=== PATIENT | male | born 1995 | race Caucasian/White ===

== ENCOUNTER → 2022-04-12 08:05 | Outpatient (CLI) | payer OTHER, SELFPAY ==
--- NOTE | 2022-04-12 08:06 | DI.US.S_ITS ---
7PROCEDURE: US SCROTUM INDICATIONS: LEFT VARICOCELE TECHNIQUE: Real-time scanning was performed of the scrotum and testicles, with image documentation. Color and pulse Doppler interrogation was performed of both testicles. COMPARISON: None. FINDINGS: Right: Testicle is normal in size at 4.2 x 2.3 x 3.4 cm, and homogenous in echotexture. Epididymis is normal in overall size and morphology. No hydrocele or varicoceles. Overlying scrotal skin is normal in thickness. Left: Testicle is normal in size at 4 x 2.1 x 2.7 cm, and homogeneous in echotexture. Epididymis is normal in overall size and morphology. No hydrocele. There is a moderate to prominent left-sided varicocele. Overlying scrotal skin is normal in thickness. Doppler: Color and pulse Doppler demonstrate normal and symmetric arterial flow in both testicles. IMPRESSION: A moderate to prominent left-sided scrotal varicocele is seen, which is consistent with the given history. Normal appearing testicles, without masses or abnormal vascularity. Dictated by: Long Cerda M.D. on 04/12/2022 at 8:52 Approved by: Long Cerda M.D. on 04/12/2022 at 8:53
== END ==
PROVIDERS: Referring Provider Urology; Visit Provider Urology
DX: I86.1 Scrotal varices (principal); R10.31 Right lower quadrant pain
CPT/HCPCS: 76870; 99213

== ENCOUNTER → 2022-08-14 08:10 | Outpatient (CLI) | payer OTHER, SELFPAY ==
--- NOTE | 2022-08-14 08:12 | DI.US.S_ITS ---
PROCEDURE: US SCROTUM INDICATIONS: FOLLOW-UP LEFT VARICOCELE TECHNIQUE: Real-time scanning was performed of the scrotum and testicles, with image documentation. Color and pulse Doppler interrogation was performed of both testicles. COMPARISON: [facility], , US SCROTUM, 04/12/2022, 8:28. FINDINGS: Right: Testicle is normal in size at 4.1 x 2.2 x 3.4 cm, and homogenous in echotexture. Epididymis is normal in overall size and morphology. No hydrocele or varicoceles. Overlying scrotal skin is normal in thickness. Left: Testicle is normal in size at 4.1 x 2.0 x 3.1 cm, and homogeneous in echotexture. Epididymis is normal in overall size and morphology. Stable moderate left-sided varicocele. No significant hydrocele. Overlying scrotal skin is normal in thickness. Doppler: Color and pulse Doppler demonstrate normal and symmetric arterial flow in both testicles. IMPRESSION: Stable moderate left varicocele. Approved by: aJmison Hamilton M.D. on 08/14/2022 at 10:04
== END ==
PROVIDERS: Referring Provider Urology; Visit Provider Urology
DX: I86.1 Scrotal varices (principal); R10.31 Right lower quadrant pain
CPT/HCPCS: 76870

== ENCOUNTER → 2024-05-16 08:37 | Outpatient (CLI) | payer OTHER, SELFPAY ==
--- NOTE | 2024-05-16 | DI.US.S_ITS ---
PROCEDURE: US SCROTUM INDICATIONS: SCROTAL VARICES TECHNIQUE: Real-time scanning was performed of the scrotum and testicles, with image documentation. Color and pulse Doppler interrogation was performed of both testicles. COMPARISON: [facility], , US SCROTUM, 08/14/2022, 8:27. FINDINGS: Right: Testicle is normal in size at 4.3 x 3.3 x 2.2 cm, and homogenous in echotexture. A few microcalcifications are present. Epididymis is normal in overall size and morphology. Epididymal head cyst measuring 6 mm. No hydrocele or varicoceles. Overlying scrotal skin is normal in thickness. Left: Testicle is normal in size at 4.4 x 2.9 x 2.1 cm, and homogeneous in echotexture. Epididymis is normal in overall size and morphology. Varicoceles present. Overlying scrotal skin is normal in thickness. Doppler: Color and pulse Doppler demonstrate normal and symmetric arterial flow in both testicles. IMPRESSION: Left-sided testicular varicoceles. A few right-sided testicular microcalcifications without suspicious mass. Dictated by: Rl Leroy M.D. on 05/16/2024 at 10:30 Approved by: Rl Leroy M.D. on 05/16/2024 at 10:35
== END ==
LOC: US 08:38
DX: I86.1 Scrotal varices (principal)
CPT/HCPCS: 76870